=== PATIENT | male | born 1990 | race Caucasian/White ===

== ENCOUNTER 2024-06-14 21:14 | Emergency (ER) | payer OTHER, SELFPAY ==
[2024-06-14 21:24] VITALS: BP 141/89
[2024-06-14] MEDS: ANTIVERT 25 MG PO (22:37)
[2024-06-14] MEDS: NSS 1000 IV (22:37)
--- NOTE | 2024-06-14 22:38 | ED.GENMED ---
History of Present Illness
General
Chief Complaint: Dizziness
Time Seen by Provider: 06/14/24 22:10
History of Present Illness
History of Present Illness:
34-year-old male with history of anxiety presenting to the emergency department for dizziness. Patient reports for the past several days has been feeling 'out of it 'and feels like his head is spinning. Notes that he has been tripping over his
words. Denies any weakness or numbness to his extremities. Reports that his symptoms are making him very anxious. Denies any visual changes. Symptoms are worse with sudden eye movements. Denies chest pain or difficulty breathing. Denies fever
or systemic symptoms. Denies abdominal pain or GI symptoms. Reports that he had similar symptoms a few months ago when he was in [place], was told that he may have vertigo. Denies fall or trauma. Denies any issues with sleeping, however does
think that he may have sleep apnea, wakes several times in the night. Reports that he has been eating and drinking appropriately, however notes that he does not drink as much water as he should. Denies additional acute medical complaints
Past History
Past History
ED Past Medical History: None and Other (Encoparesis as a child, ADHD)
ED Past Surgical History: Tonsilectomy
Social History
Tobacco: Non-smoker
Alcohol: Occasional
Drug: None
Personal: Single
Living: other (Lives with significant other)
Employment: Employed
Family History
Family History: Other (Noncontributory)
Phy Exam
Physical Exam
Physical Exam:
General: Well-appearing, no clinical signs of dehydration, nontoxic and in no acute distress
HEENT: protecting airway, pupils equal and reactive. Symptoms reproduced with extraocular movements. No significant nystagmus.
Neck: appears supple
CV: Normal heart rate, regular rhythm, no evidence of cyanosis
Resp: No accessory muscle use, no increased work of breathing, lungs clear to auscultation bilaterally
Abd: Soft and non-distended, no tenderness to palpation
Extremities: No deformities, no swelling, no erythema
Neuro: alert, no focal neurologic deficit
: deferred
Rectal: deferred
Psych: Normal affect
Skin: Intact
Course
Orders/Labs/Results
Orders:
Orders
06/14/24 21:15
ECG [Electrocardiogram (*1)] Urgent
Reason for Study: Vertigo / Dizzy
Cardiology Consult: Unknown
06/14/24 21:16
EKG- Treatment ONCE
06/14/24 22:32
0.9% Sodium Chloride 1000 ml [Nss] 1,000 ml IV BOLUS
Meclizine [Antivert] 25 mg PO NOW STA
06/14/24 22:33
CT Head W/o Iv Contrast Urgent
Comment:
Reason For Exam: dizzy, feels off
06/14/24 22:43
Complete Blood Count/With Diff Urgent
Comprehensive Metabolic Panel Urgent
Free T4 Urgent
TSH Reflex To Free T4 Urgent
Urinalysis Reflex To Culture Urgent
Date Specimen was Collected: 06/14/24
Time Specimen was Collected: 22:37
Urine Microscopic Reflex Cult Urgent
Abnormal Lab Results
06/14/24
22:43
MCH 31.5 H pg
(27.0-31.0)
Absolute Monos (auto) 1.0 H 10^3/uL
(0.1-0.6)
Glucose 115 H mg/dl
(70-99)
TSH (Reflex) 4.77 H uIU/ml
(0.47-4.68)
Ur Occult Blood Reflex 1+ A
(Negative)
Urine RBC 7-10 A /HPF
(0-2)
Urine Bacteria (Reflex) Few A
(Negative)
06/14/24 22:43
06/14/24 22:43
Vital Signs
Initial and Last Documented VS:
Initial Vital Signs
Temp Pulse Resp BP Pulse Ox
98.8 F 91 18 141/89 97
06/14/24 21:24 06/14/24 21:24 06/14/24 21:24 06/14/24 21:24 06/14/24 21:24
Last Documented Vital Signs
Temp Pulse Resp BP Pulse Ox
98.8 F 77 22 114/72 98
06/14/24 21:24 06/15/24 00:45 06/15/24 00:45 06/15/24 00:00 06/15/24 00:45
MDM/Problems Addressed
MDM/Problems Addressed:
34-year-old male with history of anxiety presenting to the emergency department for feeling dizzy and off for the past several days. Vital signs on arrival are normal.
On exam, patient is well-appearing, no acute distress, reassuring examination. Unremarkable cardiac and pulmonary exam. EKG obtained, nonischemic, no signs of arrhythmia to explain patient's symptoms. No focal neurologic deficits on exam with
lower suspicion for central neurologic process. Patient afebrile, nontoxic, no infectious symptoms with lower suspicion for acute infectious process. Suspect possible vertiginous component to symptoms, reproduced with extraocular eye movements.
Patient is very concerned regarding symptoms, notes that he is feeling very anxious. Will screen with laboratory analysis to ensure normal electrolyte panel, TSH, blood counts. Will also obtain CT brain imaging. Will treat therapeutically with IV
fluids in the setting of possible volume depletion component. Will also trial meclizine and reassess for improvement.
01:00 - Patient's labs are unremarkable. Mild elevation of TSH, however normal T4. CT brain without acute intracranial abnormality. On reassessment, patient remains hemodynamically stable, reports symptom improvement, feel stable for discharge
with close interval follow-up with primary care doctor. Return precautions discussed and patient verbalized understanding
*EKG
Interpreted by ED Provider?: Yes
EKG Intrepretation Date: 06/14/24
EKG Intrepretation Time: 22:42
Interpretation: normal
Comparison EKG: no changes (01/02/12)
Heart Rate: 89
Rate: normal
Rhythm: sinus
[place]: normal axis
Interval: normal interval
QRS Pattern: normal QRS
Ischemia: no ischemia
*Critical Care Note
Total Time (30-74mins, 75-104mins- exclusive of procedures): Not Applicable
ED Attending Note
-
Portions of this chart may have been created with voice recognition software.� Occasional wrong word or��sound alike� substitutions may have occurred due to the inherent limitations of voice recognition software.
Discharge Plan
Departure
Prescriptions:
No Action
hydrocortisone acetate 25 MG suppository
25 mg [place] BID Qty: 10 0RF
Referrals:
Torrey Sands MD [Family Provider] -
Interventions
Interventions:
*Risk Screen - Suicide Last Done: 06/14/24 21:19
*General Assessment Last Done: 06/14/24 21:24
*Neglect/Abuse Screening Last Done: 06/14/24 21:24
ED- Neurological Assessment Last Done: 06/14/24 23:05
ED- Cardiac Assessment Last Done: 06/14/24 23:05
ED Swallowing Screen Last Done: 06/14/24 22:48
Discharge Date and Time
Print Language: MALAY
[2024-06-14 22:48] LABS: Urine Albumin Negative (Neg - Trace); Urine Bilirubin Negative (Negative); Urine Character Clear (Clear); Urine Color Yellow; Urine Glucose Negative (Negative); Urine Ketone Negative (Negative); Urine Leukocyte Negative (Negative); Urine Nitrite Negative (Negative); Urine Occult Blood 1+ (Negative); Urine Urobilinogen Negative (Neg - 1+)
[2024-06-14 22:50] LABS: % Basophils 0.3 % (0-2); % Eosinophils 1.2 % (0-6); % Immature Granulocytes 0.3 % (0-0.5); % Monocytes 9.3 % (1.7-9.3); % Neutrophils 61.9 % (42.2-75.2); Absolute Eosinophils 0.1 10^3/uL (0-0.7); Absolute Lymphocytes 2.8 10^3/uL (1.2-3.4); Absolute Neutrophils 6.4 10^3/uL (1.4-6.5); Hematocrit 44.3 % (39.0-52.0); Hemoglobin 15.5 g/dL (13.0-18.0); Mean Corpuscular Hgb 31.5 pg (27.0-31.0); Nucleated Red Blood Cells % 0 % (-); Platelet Count 320 10^3/uL (130-400); Red Blood Cell Count 4.92 10^6/uL (4.70-6.10); Red Cell Dist. Width 13.1 % (11.5-14.5); White Blood Cell Count 10.3 10^3/uL (4.8-10.8)
[2024-06-14 23:11] LABS: ALT (SGPT) 40 U/L (0-50); AST (SGOT) 28 U/L (17-59); Albumin 4.3 g/dl (3.5-5.0); Alkaline Phosphatase 90 U/L (38-126); Blood Urea Nitrogen 14 mg/dl (9-20); Calcium 9.6 mg/dl (8.4-10.2); Carbon Dioxide 29 mmol/L (22-30); Chloride 100 mmol/L (98-107); Glucose 115 mg/dl (70-99); Sodium 139 mmol/L (135-145); Total Bilirubin 0.4 mg/dl (0.2-1.3); Total Protein 6.8 g/dl (6.3-8.2); eGFR > 60.00
[2024-06-14 23:19] VITALS: BP 120/78
[2024-06-14 23:19] LABS: Urine Bacteria Few (Negative)
[2024-06-14 23:43] LABS: TSH Reflex To Free T4 4.77 uIU/ml (0.47-4.68)
[2024-06-15] VITALS: BP 114/72
[2024-06-15 00:14] LABS: Free T4 1.24 ng/dl (0.78-2.19)
[2024-06-15 01:00] VITALS: BP 115/69
== END 2024-06-15 01:20 | disposition home or self-care (01) ==
LOC: EMR 21:14
PROVIDERS: EMERGENCY PHYSICIAN Student in an Organized Health Care Education/Training Program; FAMILY PHYSICIAN Family Medicine
DX: F41.9 Anxiety disorder, unspecified (principal)
CPT/HCPCS: 99285; 96360; 70450; 80053; 81003; 81015; 84439; 84443; 85025; 93005

== ENCOUNTER 2024-08-31 19:16 | Emergency (ER) | payer OTHER, SELFPAY ==
[2024-08-31 19:18] VITALS: BP 145/91
--- NOTE | 2024-08-31 20:20 | ED.GENMED ---
History of Present Illness
General
Chief Complaint: Throat Problem
Source: patient
Exam Limitations: none
Time Seen by Provider: 08/31/24 20:10
Nursing documentation reviewed up to this point in time: agreed with
History of Present Illness
History of Present Illness:
pt kaden 34 y/o M
says that during incidental cat scan in [place] in december 2023 he had a finding of a vallecula mass
ENT there biopsied it and it was negative
he was supposed tohave it removed but he says he 'fell into a bad times' and then moved here in may
he has appt with [facility] 09/11
but today he suddenly started feeling swelling in the back of his throat causing him some difficulty breathing
he was swallowing ok, not drooling, no voice change
has had a sore throat for a few hours
no recent fever, cough
Past History
Past History
ED Past Medical History: None and Other (Encoparesis as a child, ADHD)
ED Past Surgical History: Tonsilectomy
Social History
Tobacco: Non-smoker
Alcohol: Occasional
Drug: None
Personal: Single
Living: other (Lives with significant other)
Employment: Employed
Family History
Family History: Other (Noncontributory)
Review of Systems
Review of Systems
Allergies reviewed?: Yes
All Other Systems: Not applicable
Phy Exam
Physical Exam
Physical Exam:
GENERAL: Alert , in no apparent distress
EYE: pupils equal and reactive
NECK: Supple
no significant adenopathy
normal ROM
ENT: b/l TM s clear, pharynx mininmally erythematous but no tonsillar hypertrophy or exudates
uvula m
CARDIAC: Regular rate and rhythm, no edema
LUNGS: Clear breath sounds bilaterally, no acute respiratory distress, no wheezes/rales/rhonchi, occ cough
ABDOMEN: Soft, without focal tenderness, no r/g, no cvat, normal bowel sounds
NEUROLOGICAL: Alert and oriented, no focal neuro deficits
SKIN: Warm and dry, skin intact.
MUSCULOSKELETAL: No edema, well perfused.
PSYCH: Normal and appropriate interaction.
Course
Orders/Labs/Results
Orders:
Orders
08/31/24 20:21
Labetalol HCl [Trandate] 10 mg IV NOW STA
08/31/24 20:28
CT Neck With Iv Contrast Urgent
Comment:
Reason For Exam: h/o vallecula mass ; had swelling tonight & sob
Dexamethasone Sod Phosphate [Decadron] 10 mg IV NOW STA
08/31/24 21:13
COVID-19 Antigen Urgent
Source: Nasal Swab
Complete Blood Count/With Diff Urgent
Comprehensive Metabolic Panel Urgent
Influenza A+B Rapid Molecular Urgent
CARMEL Source: Nasal Swab
Specimen Description:
08/31/24 21:20
Rapid Strep Group A Urgent
CARMEL Source: Throat/Pharynx
Specimen Description:
Date Specimen was Collected: 08/31/24
Time Specimen was Collected: 21:16
Abnormal Lab Results
08/31/24
21:13
Absolute Monos (auto) 0.8 H 10^3/uL
(0.1-0.6)
Glucose 119 H mg/dl
(70-99)
08/31/24 21:13
08/31/24 21:13
Vital Signs
Initial and Last Documented VS:
Initial Vital Signs
Temp Pulse Resp BP Pulse Ox
36.7 C 94 18 145/91 99
08/31/24 19:18 08/31/24 19:18 08/31/24 19:18 08/31/24 19:18 08/31/24 19:18
Last Documented Vital Signs
Temp Pulse Resp BP Pulse Ox
36.7 C 94 18 145/91 98
08/31/24 19:18 08/31/24 19:18 08/31/24 19:18 08/31/24 19:18 08/31/24 22:00
MDM/Problems Addressed
Differential Diagnosis Includes:
pharyngitis, laryngitis, angioedema
MDM/Problems Addressed:
34 y/o M
known soft tissue massvallecula
had biposy which was benign
here with swelling/throat fullness sensation tonight that made him very anxious
he felt better on arrival
says it hasn't bothered him in months
has appt with ENT in 10 days
no fever/chills but has had a sore thraot for a few days
well appearing
no distress
normal phonation
no appreciated swelling
no sublingual swelling
nontender neck exam
toelrating secretion
posterior pharynx normal
labs reassuring, wbc normal
afebrile
ct neck 2.5 cm soft tissue mass vallecula
no other findings
2250
improved with steroids
d/w ed attending
will send home with steroids
*Critical Care Note
Total Time (30-74mins, 75-104mins- exclusive of procedures): Not Applicable
ED Attending Note
-
Portions of this chart may have been created with voice recognition software.� Occasional wrong word or��sound alike� substitutions may have occurred due to the inherent limitations of voice recognition software.
Discharge Plan
Departure
Patient Disposition: Home (Routine Discharge)
Date of Disposition: 08/31/24
Time of Disposition: 22:51
Patient with high blood pressure during this ER visit?: No
Condition: Fair
Covid-19: Not Applicable
Discharge Problem:
Vallecular mass
Instructions: Sore Throat, Adult (DC)
Prescriptions:
New
prednisone 50 mg tablet
50 mg PO DAILY Qty: 5 0RF
No Action
hydrocortisone acetate 25 MG suppository
25 mg [place] BID Qty: 10 0RF
Referrals:
UNKNOWN - PT NOT,INTERVIEWE [Family Provider] -
Activity Restrictions/Additional Instructions:
YOUR CAT SCAN DOES SHOW THE SOFT TISSUE MASS IN YOUR VALLECULA MEASURING 2.5 CM
WE DO NOT KNOW IF THIS IS LARGER THAN PREVIOUS
THERE WERE NO OTHER CONCERNING FINDINGS ON OUR BLOOD WORK OR ON YOUR CAT SCAN
PLEASE FOLLOW UP WITH ENT SCHEDULED
FOR NOW, TAKE PREDNISONE 50 MG ONCE A DAY FOR 5 DAYS
RETURN FOR: WORSENING TROUBLE BREATHING/SWALLOWING, FEVER, NECK SWELLING NECK STIFFNESS OR ANY CONCERNS.
Interventions
Interventions:
*Risk Screen - Suicide Last Done: 08/31/24 19:18
*General Assessment Last Done: 08/31/24 19:18
*Neglect/Abuse Screening Last Done: 08/31/24 19:18
*Nursing Disposition Last Done: 08/31/24 23:19
ED-EENT Assessment Last Done: 08/31/24 21:24
ED- Pulmonary Assessment Last Done: 08/31/24 21:24
Discharge Date and Time
Discharge Date/Time: 08/31/24 23:20
Print Language: ROMANSH
[2024-08-31] MEDS: DECADRON 10 MG IV (21:18)
[2024-08-31 21:30] LABS: % Basophils 0.5 % (0-2); % Eosinophils 0.8 % (0-6); % Immature Granulocytes 0.2 % (0-0.5); % Lymphocytes 21.3 % (20.5-51.1); % Neutrophils 68.2 % (42.2-75.2); Absolute Basophils 0.1 10^3/uL (0-0.2); Absolute Eosinophils 0.1 10^3/uL (0-0.7); Absolute Monocytes 0.8 10^3/uL (0.1-0.6); Absolute Neutrophils 6.3 10^3/uL (1.4-6.5); Hematocrit 46.1 % (39.0-52.0); Hemoglobin 15.5 g/dL (13.0-18.0); Mean Corp Hgb Conc. 33.6 g/dL (33.0-37.0); Mean Corpuscular Hgb 30.2 pg (27.0-31.0); Mean Corpuscular Volume 89.7 fL (80.0-94.0); Mean Platelet Volume 9.1 fL (7.4-10.4); Nucleated Red Blood Cells % 0 % (-); Platelet Count 310 10^3/uL (130-400); Red Blood Cell Count 5.14 10^6/uL (4.70-6.10); White Blood Cell Count 9.2 10^3/uL (4.8-10.8)
[2024-08-31 21:43] LABS: COVID-19 Antigen Negative (Negative)
[2024-08-31 21:46] LABS: ALT (SGPT) 31 U/L (0-50); AST (SGOT) 25 U/L (17-59); Albumin 4.4 g/dl (3.5-5.0); Alkaline Phosphatase 93 U/L (38-126); Blood Urea Nitrogen 17 mg/dl (9-20); Calcium 9.3 mg/dl (8.4-10.2); Carbon Dioxide 27 mmol/L (22-30); Chloride 101 mmol/L (98-107); Glucose 119 mg/dl (70-99); Potassium 3.9 mmol/L (3.5-5.1); Sodium 137 mmol/L (135-145); Total Bilirubin 0.3 mg/dl (0.2-1.3); eGFR > 60.00
== END 2024-08-31 23:20 | disposition home or self-care (01) ==
LOC: EMR 19:16
PROVIDERS: Physician Assistant; EMERGENCY PHYSICIAN Emergency Medicine
DX: R22.1 Localized swelling, mass and lump, neck (principal); Z11.52 Encounter for screening for COVID-19
CPT/HCPCS: 99284; 96374; 70491; 80053; 85025; 87070; 87502; 87811; 87880; Q9967

== ENCOUNTER 2024-10-08 08:58 | Emergency (ER) | payer OTHER, SELFPAY ==
[2024-10-08 09:15] VITALS: BP 129/73
--- NOTE | 2024-10-08 10:12 | ED.GENMED ---
History of Present Illness
General
Chief Complaint: Flank Pain
Source: patient
Exam Limitations: none
Time Seen by Provider: 10/08/24 10:01
History of Present Illness
History of Present Illness:
34-year-old male presents complaining of right upper quadrant abdominal pain that radiates to the right flank. This is worse with eating. He denies shortness of breath or pain with breathing. No recent travel or surgery. No leg swelling or calf
pain. He has a known gastric ulcer. This discomfort that he has currently is different than his normal gastric ulcer discomfort. He denies shortness of breath. No fever.
Past History
Past History
ED Past Medical History: None and Other (Encoparesis as a child, ADHD)
ED Past Surgical History: Tonsilectomy
Social History
Tobacco: Non-smoker
Alcohol: Occasional
Drug: None
Personal: Single
Living: other (Lives with significant other)
Employment: Employed
Family History
Family History: Other (Noncontributory)
Phy Exam
Physical Exam
Physical Exam:
General: Well appearing male NAD
HEENT: NC/AT
Heart: RRR, no murmurs
Lungs: CTA Bilaterally
Abd: soft, tender to epigastric and RUQ
Ext: No cyanosis or edema
Skin: warm, no rash
Course
Orders/Labs/Results
Orders:
Orders
10/08/24 10:09
US Abdomen Complete/Upper Urgent
Comment:
Reason For Exam: ruq pain
10/08/24 10:14
Complete Blood Count/With Diff Urgent
Comprehensive Metabolic Panel Urgent
Lipase Urgent
Abnormal Lab Results
10/08/24
10:14
Carbon Dioxide 32 H mmol/L
(22-30)
Glucose 102 H mg/dl
(70-99)
10/08/24 10:14
10/08/24 10:14
Vital Signs
Initial and Last Documented VS:
Initial Vital Signs
Temp Pulse Resp BP Pulse Ox
98.5 F 75 16 129/73 100
10/08/24 09:15 10/08/24 09:15 10/08/24 09:15 10/08/24 09:15 10/08/24 09:15
Last Documented Vital Signs
Temp Pulse Resp BP Pulse Ox
98.5 F 75 16 129/73 100
10/08/24 09:15 10/08/24 09:15 10/08/24 09:15 10/08/24 09:15 10/08/24 09:15
MDM/Problems Addressed
Differential Diagnosis Includes:
Right upper quadrant abdominal discomfort worse with eating. Consider biliary colic versus gastritis versus continued pain from gastric ulcer. Pain is not pleuritic there is no respiratory distress no PE risk factors. Do not suspect PE. Vital
signs are stable. Check labs including lipase ultrasound ordered
*Critical Care Note
Total Time (30-74mins, 75-104mins- exclusive of procedures): Not Applicable
Update Note
Update Note:
Patient reevaluated appears comfortable ultrasound negative for acute finding labs reviewed without significant finding. Patient has known ulcer. Question discomfort related to his ulcer. Do not suspect PE as there is no pleuritic pain he is not
hypoxic he is not tachycardic no respiratory distress. Recommend continued follow-up with his office. Stable for discharge
ED Attending Note
-
Portions of this chart may have been created with voice recognition software.� Occasional wrong word or��sound alike� substitutions may have occurred due to the inherent limitations of voice recognition software.
Discharge Plan
Departure
Patient Disposition: Home (Routine Discharge)
Date of Disposition: 10/08/24
Time of Disposition: 12:49
Patient with high blood pressure during this ER visit?: No
Discharge Problem:
Abdominal pain
Prescriptions:
No Action
hydrocortisone acetate 25 MG suppository
25 mg [place] BID Qty: 10 0RF
prednisone 50 mg tablet
50 mg PO DAILY Qty: 5 0RF
Referrals:
Geeta Kraus PA-C [Family Provider] -
Activity Restrictions/Additional Instructions:
Return here for worsening symptoms. Continue Tylenol and your antacids.
Discharge Date and Time
Print Language: YI
[2024-10-08 10:14] VITALS: BP 117/76
[2024-10-08 10:32] LABS: % Basophils 0.4 % (0-2); % Eosinophils 0.7 % (0-6); % Immature Granulocytes 0.3 % (0-0.5); % Lymphocytes 24.4 % (20.5-51.1); % Monocytes 8.7 % (1.7-9.3); % Neutrophils 65.5 % (42.2-75.2); Absolute Eosinophils 0.1 10^3/uL (0-0.7); Absolute Lymphocytes 1.7 10^3/uL (1.2-3.4); Absolute Monocytes 0.6 10^3/uL (0.1-0.6); Absolute Neutrophils 4.6 10^3/uL (1.4-6.5); Hematocrit 48.2 % (39.0-52.0); Hemoglobin 16.1 g/dL (13.0-18.0); Mean Corp Hgb Conc. 33.4 g/dL (33.0-37.0); Mean Corpuscular Hgb 30.1 pg (27.0-31.0); Mean Corpuscular Volume 90.3 fL (80.0-94.0); Nucleated Red Blood Cells % 0 % (-); Platelet Count 336 10^3/uL (130-400); Red Blood Cell Count 5.34 10^6/uL (4.70-6.10); Red Cell Dist. Width 12.9 % (11.5-14.5)
[2024-10-08 10:45] LABS: ALT (SGPT) 28 U/L (0-50); AST (SGOT) 20 U/L (17-59); Albumin 4.4 g/dl (3.5-5.0); Alkaline Phosphatase 103 U/L (38-126); Blood Urea Nitrogen 10 mg/dl (9-20); Calcium 9.4 mg/dl (8.4-10.2); Carbon Dioxide 32 mmol/L (22-30); Chloride 100 mmol/L (98-107); Glucose 102 mg/dl (70-99); Lipase 40 U/L (23-300); Potassium 4.4 mmol/L (3.5-5.1); Sodium 138 mmol/L (135-145); Total Bilirubin 0.5 mg/dl (0.2-1.3); Total Protein 7.1 g/dl (6.3-8.2); eGFR > 60.00
== END 2024-10-08 13:00 | disposition home or self-care (01) ==
LOC: EMR 08:58
PROVIDERS: Physician Assistant; EMERGENCY PHYSICIAN Emergency Medicine; FAMILY PHYSICIAN Physician Assistant Medical
DX: R10.11 Right upper quadrant pain (principal); K25.9 Gastric ulcer, unspecified as acute or chronic, without hemorrhage or perforation
CPT/HCPCS: 99284; 76700; 80053; 83690; 85025

== ENCOUNTER → 2025-03-08 16:51 | Outpatient (REF) | payer OTHER, SELFPAY | LOC: RAD 16:51 | PROVIDERS: ATTENDING PHYSICIAN Family Medicine | DX: R31.29 Other microscopic hematuria (principal); R07.81 Pleurodynia | CPT/HCPCS: 71101; 74018 ==